=== PATIENT | female | born 1990 | race Caucasian/White ===

== ENCOUNTER 2021-09-13 14:01 | Emergency (ER) | payer BC ==
[2021-09-13 14:28] VITALS: BP 97/74; PULSE 82; TEMP 97.6; BMI 17.5
[2021-09-13] MEDS ORDERED: SODIUM CHLORIDE 1,000 ML IV ONE (14:45)
[2021-09-13 15:12] LABS: ALBUMIN 4.4 g/dl (3.4-5.0); BILIRUBIN,TOTAL 0.7 mg/dl (0.2-1); CALCIUM 9.7 mg/dl (8.5-10); CREATININE 0.6 mg/dl (0.55-1.3); TOT PROT 7.3 g/dl (6.4-8.2)
[2021-09-13 15:57] LABS: BASO % 0.4 % (0-2.0); EOS % 0.6 % (0-4.5); HEMATOCRIT 41.4 % (32.4-45.2); HEMOGLOBIN 13.7 GM/dL (10.7-15.3); LYMPH % 13.6 % (8-40); MCH 27.2 pg (25.7-33.7); MEAN CELL VOLUME 82.5 fl (80-96); MEAN PLT VOLUME 8.2 fl (7.5-11.1); MONO % 5.3 % (3.8-10.2); NEUT % 80.1 % (42.8-82.8); PLATELET COUNT 315 10^3/uL (134-434); RBC 5.02 M/mm3 (3.60-5.2); RDW 14.7 % (11.6-15.6); WHITE BLOOD COUNT 7.3 K/mm3 (4.0-10.0)
== END 2021-09-13 17:44 | disposition home or self-care (01) ==
LOC: FER 14:01
PROC: 3E0337Z Introduction of Electrolytic and Water Balance Substance into Peripheral Vein, Percutaneous Approach (ICD-10-PCS; principal; 2021-09-13)
DX: R55 Syncope and collapse (principal); R09.81 Nasal congestion; U09.9 Post COVID-19 condition, unspecified
CPT/HCPCS: 36415; 80053; 81003; 82272; 84703; 85025; 93005; 99284-25